=== PATIENT | female | born 1955 | race Caucasian/White ===

== ENCOUNTER → 2023-07-11 | Day surgery (SDC) | payer BC ==
[2023-07-11] VITALS (12 sets, daily range): BP systolic 102–136; BP diastolic 53–71; PULSE 68–79; RESP 12–16
[~2023-07-11] MED LIST: LIDOCAINE HCL 1% 10 MG/ML 10ML VIAL ONE; LIDOCAINE HCL/EPINEPHRINE 1%-EPI 1:100,000 20 ML VIAL ONE
[2023-07-11] MEDS: CEFAZOLIN 1000MG PREMIX 50 ML IV ONE (09:29)
[2023-07-11] MEDS: FENTANYL CITRATE/PF 50MCG/ML 2ML VIAL IV ONE ×2 (09:39→09:50)
== END | disposition home or self-care (01) ==
LOC: RADANGIO 08:22
DX: C85.90 Non-Hodgkin lymphoma, unspecified, unspecified site (principal); R59.1 Generalized enlarged lymph nodes; E66.9 Obesity, unspecified; Z79.82 Long term (current) use of aspirin; Z79.899 Other long term (current) drug therapy; Z98.890 Other specified postprocedural states
CPT/HCPCS: 36561; 77001; 76937; J3010; J0690; J3490 ×2; 99152; 99153; G0500